=== PATIENT | male | born 1955 | race Caucasian/White ===

== ENCOUNTER → 2020-07-08 09:11 | Outpatient (BNVA) | payer OTHER, MEDICARE, SELFPAY | PROVIDERS: PCP Internal Medicine; Visit Provider Internal Medicine Pulmonary Disease ==

== ENCOUNTER 2020-07-25 08:48 | Outpatient (REF) | payer OTHER, MEDICARE, SELFPAY ==
--- NOTE | 2020-07-25 15:30 | PFT_ITS ---
Forced vital capacity is slightly decreased. FEV1, [id number], and MVV are markedly decreased. Post bronchodilator therapy, there is significant improvement in FEV1, [id number], and MVV. Total lung capacity normal. Residual volume moderately increased. Diffusion capacity is markedly decreased. CONCLUSION: Severe obstructive airway disorder. Partial reversibility after bronchodilator therapy is noted suggesting asthma/COPD overlap syndrome. Clinical correlation is recommended. MD LAURA Aggarwal/MODL / [id number]
== END 2020-07-25 08:49 | disposition home or self-care (01) ==
LOC: HO.RESP 08:48
PROVIDERS: PCP Internal Medicine; Visit Provider Internal Medicine Pulmonary Disease
DX: J44.9 Chronic obstructive pulmonary disease, unspecified (principal)
CPT/HCPCS: 94060; 94727; 94729

== ENCOUNTER → 2020-07-29 08:56 | Outpatient (BNVA) | payer OTHER, MEDICARE, SELFPAY | PROVIDERS: PCP Internal Medicine; Visit Provider Internal Medicine Pulmonary Disease ==

== ENCOUNTER → 2020-09-12 09:27 | Outpatient (BNVA) | payer OTHER, MEDICARE, SELFPAY | PROVIDERS: PCP Internal Medicine; Visit Provider Urology ==

== ENCOUNTER → 2020-11-27 08:57 | Outpatient (BNVA) | payer OTHER, MEDICARE, SELFPAY | PROVIDERS: PCP Internal Medicine; Visit Provider Internal Medicine Pulmonary Disease ==

== ENCOUNTER 2021-02-24 13:32 | Outpatient (REF) | payer OTHER, MEDICARE, SELFPAY ==
--- NOTE | ~2021-02-24 | US_ITS ---
EXAMINATION: US RETROPERITONEAL LIMITED (RENAL ONLY) CLINICAL INFORMATION: Calculus of kidney. COMPARISON: CT abdomen and pelvis with intravenous contrast only dated 05/22/2015. TECHNIQUE: Real-time imaging of the kidneys. FINDINGS: RIGHT KIDNEY: 10.1 x 4.4 x 4.8 cm (SAG x AP x TRV). The kidney is normal in size, contour, and echogenicity. Renal cortical thickness is normal. No calculi or focal parenchymal lesions. No hydronephrosis. LEFT KIDNEY: 10.8 x 4.9 x 4.6 cm (SAG x AP x TRV). The kidney is normal in size, contour, and echogenicity. Renal cortical thickness is normal. No calculi or focal parenchymal lesions. No hydronephrosis. US/US renal BI IMPRESSION: Unremarkable renal ultrasound.
== END 2021-02-24 13:33 | disposition home or self-care (01) ==
LOC: HO.US 13:32
PROVIDERS: Visit Provider Urology
DX: N20.0 Calculus of kidney (principal)
CPT/HCPCS: 76775

== ENCOUNTER 2021-03-09 07:04 | Outpatient (REF) | payer OTHER, MEDICARE, SELFPAY ==
[2021-03-09 09:11] LABS: Prostate Specific Antigen 7.59 ng/mL (<0.05-4.0)
== END 2021-03-09 07:05 | disposition home or self-care (01) ==
LOC: HO.LAB 07:04
PROVIDERS: PCP Internal Medicine; Visit Provider Urology
DX: Z12.5 Encounter for screening for malignant neoplasm of prostate (principal); N40.0 Benign prostatic hyperplasia without lower urinary tract symptoms
CPT/HCPCS: 36415; 84153

== ENCOUNTER → 2021-03-13 09:05 | Outpatient (BNVA) | payer OTHER, MEDICARE, SELFPAY | PROVIDERS: PCP Internal Medicine; Visit Provider Urology | DX: R97.20 Elevated prostate specific antigen [PSA] (principal); N20.0 Calculus of kidney; N40.0 Benign prostatic hyperplasia without lower urinary tract symptoms | CPT/HCPCS: 51798; 99212 ==

== ENCOUNTER → 2021-05-19 08:44 | Outpatient (BNVA) | payer OTHER, MEDICARE, SELFPAY | PROVIDERS: PCP Internal Medicine; Visit Provider Internal Medicine Pulmonary Disease | DX: J44.9 Chronic obstructive pulmonary disease, unspecified (principal); R91.8 Other nonspecific abnormal finding of lung field; Z87.891 Personal history of nicotine dependence | CPT/HCPCS: 99212 ==

== ENCOUNTER 2021-06-17 07:15 | Outpatient (REF) | payer OTHER, SELFPAY ==
--- NOTE | ~2021-06-17 | CT_ITS ---
EXAMINATION: CT CHEST WITHOUT CONTRAST CLINICAL INFORMATION: Other nonspecific abnormal finding of lung field. COMPARISON: Previous chest x-ray and chest CT from 2017 TECHNIQUE: Multidetector volumetric CT imaging of the chest was done. Axial MIP volume rendering provided. Sagittal and coronal reformatted images were obtained. This CT examination was performed using dose optimization techniques as appropriate, variously including the following: *Automated exposure control *Adjustment of mA and/or kV according to patient size (this includes techniques or standardized protocols for targeted exams where dose is matched to indication/reason for exam; i.e. extremities or head) *Use of iterative reconstruction technique DLP: 140 mGy-cm FINDINGS: LUNGS: There is evidence of severe emphysema. There is biapical pleural and parenchymal scarring. The previously identified areas of consolidation in the left upper and right lower lobes have resolved. Right: There is focal scarring seen in the posterior segment of the right upper lobe and superior segment of the right lower lobe adjacent to the major fissure. There is a cyst or cavity seen in the superior segment of the right lower lobe measuring 1.3 cm, axial image 214 series 5. There is adjacent triangular-shaped 0.8 x 1.8 cm possible wall thickening or parenchymal consolidation, for example, axial image 213 series 15. There is an irregular parenchymal density seen in the more central superior segment of the right lower lobe. This is irregularly-shaped and difficult to measure, but measures approximately 1.1 cm, coronal reconstructed image 73 series 7, and measures 0.8 x 1.8 cm in AP and transverse dimension, axial image 230 series 5. There is a second more posterior triangular-shaped, abnormal parenchymal density that measures 5 x 10 mm, axial image 244 series 5. There is adjacent focal bronchiectasis and mild bronchial wall thickening seen in this region. Appearance is questionable for postinfectious or inflammatory scarring. There is a round density seen in the proximal posterior basal segmental right lower lobe bronchus, axial image 290 series 5. Left: There is focal pleural thickening and scarring or subsegmental atelectasis in the superior segment of the left lower lobe adjacent to the left pleural fissure, axial image 196 series 5. There are several clustered central left lower lobe nodules. There is a 3 x 6 mm central left lower lobe nodule, axial image 225 series 5. There is a more inferior 3 x 5 mm central left lower lobe nodule, axial image 256 series 5. Some of these changes may be related to bronchial soft tissue opacification. There is a 3 mm lingular nodule, axial image 284 series 5. MEDIASTINUM: The heart does not appear enlarged. There is mild coronary artery and aortic valve calcification. There is no pericardial effusion. The thoracic aorta is normal in caliber. There are no enlarged hilar or mediastinal lymph nodes. PLEURA: There is no pleural effusion. There is no pneumothorax. AXILLA: No lymphadenopathy. UPPER ABDOMEN: Unremarkable. OSSEOUS STRUCTURES: There is curvature of the thoracic spine to the right and degenerative changes. CT/CT chest wo con IMPRESSION: Severe emphysema. Mild biapical pleural and parenchymal scarring. Resolved areas of pneumonia and right pneumothorax from 2017. Probable postinfectious or inflammatory scarring in the superior segment of the right lower lobe adjacent to the major fissure. Fleischner guidelines were followed.
== END 2021-06-17 07:16 | disposition home or self-care (01) ==
LOC: HO.CT 07:15
PROVIDERS: Visit Provider Surgery
DX: R91.8 Other nonspecific abnormal finding of lung field (principal)
CPT/HCPCS: 71250

== ENCOUNTER → 2021-07-03 10:45 | Outpatient (BNVA) | payer OTHER, SELFPAY | PROVIDERS: PCP Internal Medicine; Visit Provider Surgery | DX: R91.8 Other nonspecific abnormal finding of lung field (principal) | CPT/HCPCS: 99212 ==

== ENCOUNTER 2021-09-09 06:58 | Outpatient (REF) | payer OTHER, SELFPAY ==
[2021-09-09 08:00] LABS: PSA,Total (Free>4and<10) 3.49 ng/mL (0.00-4.00)
== END 2021-09-09 06:59 | disposition home or self-care (01) ==
LOC: HO.LAB 06:58
PROVIDERS: PCP Internal Medicine; Visit Provider Urology
DX: Z12.5 Encounter for screening for malignant neoplasm of prostate (principal); N13.8 Other obstructive and reflux uropathy; N40.1 Benign prostatic hyperplasia with lower urinary tract symptoms; N40.0 Benign prostatic hyperplasia without lower urinary tract symptoms
CPT/HCPCS: 36415; 84153

== ENCOUNTER → 2021-09-15 08:13 | Outpatient (BNVA) | payer OTHER, SELFPAY | PROVIDERS: PCP Internal Medicine; Visit Provider Urology | DX: N40.0 Benign prostatic hyperplasia without lower urinary tract symptoms (principal); R97.20 Elevated prostate specific antigen [PSA] | CPT/HCPCS: 51798 ==

== ENCOUNTER → 2021-12-17 09:00 | Outpatient (BNVA) | payer OTHER, MEDICARE, SELFPAY | PROVIDERS: PCP Internal Medicine; Visit Provider Internal Medicine Pulmonary Disease | DX: J44.9 Chronic obstructive pulmonary disease, unspecified (principal); R91.8 Other nonspecific abnormal finding of lung field | CPT/HCPCS: 99212 ==

== ENCOUNTER 2022-03-09 06:55 | Outpatient (REF) | payer OTHER, MEDICARE, SELFPAY ==
[2022-03-09 08:20] LABS: PSA,Total (Free>4and<10) 4.39 ng/mL (0.00-4.00)
[2022-03-10 11:03] LABS: Free Prostate Spec Ag 0.7 ng/mL; Percent Free Prostate Spec Ag 18 % (calc) (>25); Prostate Specific Ag Total 3.9 ng/mL (< OR = 4.0)
== END 2022-03-09 06:56 | disposition home or self-care (01) ==
LOC: HO.LAB 06:55
PROVIDERS: PCP Internal Medicine; Visit Provider Urology
DX: Z12.5 Encounter for screening for malignant neoplasm of prostate (principal); N13.8 Other obstructive and reflux uropathy; N40.1 Benign prostatic hyperplasia with lower urinary tract symptoms; R97.20 Elevated prostate specific antigen [PSA]
CPT/HCPCS: 36415; 84153; 84154

== ENCOUNTER → 2022-03-16 08:44 | Outpatient (BNVA) | payer OTHER, MEDICARE, SELFPAY | PROVIDERS: Visit Provider Urology | DX: Z13.89 Encounter for screening for other disorder (principal) ==

== ENCOUNTER → 2022-07-09 08:45 | Outpatient (BNVA) | payer OTHER, MEDICARE, SELFPAY | PROVIDERS: Visit Provider Internal Medicine Pulmonary Disease ==

== ENCOUNTER 2022-07-27 07:14 | Outpatient (REF) | payer OTHER, MEDICARE, SELFPAY ==
--- NOTE | ~2022-07-27 | CT_ITS ---
EXAMINATION: CT CHEST WITHOUT CONTRAST CLINICAL INFORMATION: Other nonspecific abnormal finding of lung field COMPARISON: Previous chest CT most recent June 2021 TECHNIQUE: Multidetector volumetric CT imaging of the chest was done. Axial MIP volume rendering provided. Sagittal and coronal reformatted images were obtained. This CT examination was performed using dose optimization techniques as appropriate, variously including the following: *Automated exposure control *Adjustment of mA and/or kV according to patient size (this includes techniques or standardized protocols for targeted exams where dose is matched to indication/reason for exam; i.e. extremities or head) *Use of iterative reconstruction technique DLP: 119 mGy-cm FINDINGS: LUNGS: Centrilobular emphysema and cystic change. Biapical pleural and parenchymal scarring that is stable. Scarring/chronic subsegmental atelectasis in the posterior segment of the right upper lobe and superior segment of the right lower lobe fissure. There is increased triangular shaped consolidation seen in the right lower lobe in the area of questioned thick-walled cyst or cavity formation in the superior segment of the right lower lobe adjacent to the major fissure. Air component or a cystic component is no longer seen and this now measures 1.4 x 1.8 cm axial image 249 series 5 compared to 0.8 x 1.8 cm on previous exam. The 2 more inferior abnormal parenchymal density in the right lower lobe measuring maximum 1 cm axial image 272 series 5 and axial image 288 series 5 are stable. Scarring or chronic subsegmental atelectasis in the superior segment of the left lower lobe adjacent to the fissure axial image 235 series 5 is stable. MEDIASTINUM: Stable small calcification in the left lobe of the thyroid gland. Mild aortic valve calcification. Normal heart size. Upper normal-size thoracic aorta. No pericardial effusion. Small hiatal hernia. Small mediastinal lymph nodes. No enlarged hilar or mediastinal lymph nodes. CORONARY ARTERY CALCIFICATION: None visualized on this study. PLEURA: There is no pleural effusion. No pleural mass or thickening. AXILLA: No lymphadenopathy. UPPER ABDOMEN: Unremarkable. OSSEOUS STRUCTURES: Degenerative changes of the spine and scoliosis. CT/CT chest wo IV con IMPRESSION: Severe centrilobular emphysema and cystic change. Stable biapical pleural and parenchymal scarring. Stable scarring or chronic atelectasis in the bilateral upper lobes adjacent to the major fissures. Interval increase in size in now triangular-shaped consolidation in the superior segment of the right lower lobe adjacent to the major fissure. More inferior abnormal parenchymal densities in the right lower lobe are stable. Fleischner guidelines were followed.
== END 2022-07-27 07:15 | disposition home or self-care (01) ==
LOC: HO.CT 07:14
PROVIDERS: PCP Internal Medicine; Visit Provider Internal Medicine Pulmonary Disease
DX: R91.8 Other nonspecific abnormal finding of lung field (principal)
CPT/HCPCS: 71250

== ENCOUNTER 2022-09-16 06:58 | Outpatient (REF) | payer OTHER, MEDICARE, SELFPAY | END 2022-09-16 06:59 | disposition home or self-care (01) | LOC: HO.LAB 06:58 | PROVIDERS: PCP Internal Medicine; Visit Provider Urology | DX: Z12.5 Encounter for screening for malignant neoplasm of prostate (principal); R97.20 Elevated prostate specific antigen [PSA] | CPT/HCPCS: 36415; 84153 ==

== ENCOUNTER 2022-09-23 08:27 | Outpatient (AMB) | payer OTHER, MEDICARE, SELFPAY ==
--- NOTE | 2022-09-23 08:30 | MHC.OFFVIS ---
Intake Intake Visit Reasons: 6M PSA(set) Intake Note: Patient is present for follow up PSA (PSA 4.10) Urology Medications: finasteride Blood Thinner: none Glass Mechanic Required: No Accompanied by: Self / Same As Patient Allergies No Known Allergies [No Known Allergies*] Allergy (Verified 09/23/22 08:34) Medication List - Last Reconciled 09/23/22 by Ronaldo Newberry MD albuterol sulfate 90 mcg/actuation 2 puffs inhalation Q4-6H PRN 30 days finasteride 5 mg PO DAILY 90 days umeclidinium-vilanterol 62.5-25 mcg/actuation (Anoro Ellipta) 1 ea PO DAILY HPI HPI Comments History of Present Illness Details Ravi is a pleasant male. He is a patient of Dr. Bran. He is seen for the following urologic conditions - elevated PSA - lower urinary tract symptoms - erectile dysfunction PSA remaining low Continue with finasteride every other day Six month follow-up ALEXIA 2+ Lower urinary tract symptoms prior treatment with laser prostatectomy Imaging - 02/24 renal ultrasound normal no evidence of kidney stone - prior hematuria thought secondary to stone Erectile dysfunction more a question of what to look out for Elevated PSA Historic PSA between 5 and 7. Prior prostate biopsy negative PSA 03/26 8.0, 11/25 4.4, 03/28 7.6, 09/25 3.5 F+, 03/29 3.9 18% +F, 09/26 4.1 PFSH Medical History Elevated PSA Enlarged prostate H/O urinary retention History of hepatitis B History of pneumothorax Insomnia Personal history of nicotine dependence Surgical History History of bronchoscopy History of colonoscopy History of endoscopy History of prostatectomy Social History Patient Tobacco Use Status: Former Tobacco user Quit Date: 1999 Years Smoked: 40+PYH, quit 1999 Review of Systems Const Denies chills and Denies fever(s) Card Reports no additional complaints and Denies syncope Resp Denies cough GI Denies abdominal pain and Denies heartburn Reports as per HPI and Denies change in libido Neuro Denies syncope Psych Denies change in libido Endo Denies change in libido Physical Exam Const General: cooperative, healthy appearing, comfortable and no acute distress Orientation/consciousness: patient oriented x3 HEENT Face and sinus: Yes normal facial exam Mouth: moist mucous membranes Neck Neck: Yes normal visual inspection, Yes full ROM and Yes trachea midline Chest Chest palpation & inspection: normal inspection of the chest Resp Effort & Inspection: normal respiratory effort, able to speak in complete sentences and no respiratory distress GI Inspection: Yes normal to inspection Rectal Exam - Male: Yes normal sphincter tone and Yes prostate normal Male General Exam: Yes normal external exam Penis: normal penis and circumcised Meatus: meatus normal Scrotum: scrotum normal Testes: Testes normal Back/Spine/Pelvis Cervical Spine: normal cervical lordosis Thoracic/Lumbar Spine: thoracic and lumbar spine normal to inspection Skin General skin exam: no rashes or lesions noted Neuro General: patient oriented x3, gait normal, tone normal and moves all extremities Extrem General: Yes normal to inspection and Yes capillary refill normal Assessment & Plan Assessment & Plan (1) Nephrolithiasis: Code(s): N20.0 - Calculus of kidney (2) Elevated PSA: Code(s): R97.20 - Elevated prostate specific antigen [PSA] Plan Six month follow-up Orders: Orders Prostate Specific Antigen 09/16/22 R97.20 - Elevated prostate specific antigen [PSA] Prostate Specific Antigen 6 Months R97.20 - Elevated prostate specific antigen [PSA] Patient Instructions: Imaging studies, laboratory and physical exam results were discussed and reviewed in detail. No major barriers to patient understanding were identified. An opportunity to ask questions regarding the treatment plan was provided. All questions were answered. The patient expressed understanding and agreement with the above treatment plan. The patient is aware they should contact our office by phone for worsening of their current condition or the appearance of new urologic symptoms. Compliance is encouraged with any medications and followup testing that is ordered. It is a privilege to participate in the urologic care of your patient. If you have any questions or concerns regarding treatment for the above conditions, or other urologic issues, please do not hesitate to contact me. The office telephone contact is [phone]. This note is constructed using voice recognition software. While every effort has been made to ensure accuracy tack puller errors may have been included. Yours sincerely, Dr Ronaldo Newberry MD, [facility] - Urology Providers of Expert, Compassionate Care for the Genitourinary System Coding Level of Care Code Est Pt Level 3 (12034) Diagnoses Nephrolithiasis N20.0 Elevated PSA R97.20
== END 2022-09-23 09:03 | disposition home or self-care (01) ==
PROVIDERS: Visit Provider Urology
DX: N20.0 Calculus of kidney (principal); R97.20 Elevated prostate specific antigen [PSA]
CPT/HCPCS: 99213

== ENCOUNTER → 2022-09-23 08:27 | Outpatient (BNVA) | payer OTHER, MEDICARE, SELFPAY | PROVIDERS: Visit Provider Urology ==

== ENCOUNTER 2022-11-10 08:12 | Outpatient (REF) | payer OTHER, MEDICARE, SELFPAY ==
--- NOTE | 2022-11-10 09:30 | PFT_ITS ---
Forced vital capacity 88%, FEV1 40%, FEV1/FVC ratio 34. [id number] 16% and MVV is 38%. Post bronchodilator therapy, there is no change. Total lung capacity 87% and residual volume is 83%. Diffusion capacity is 36%. CONCLUSION: The patient has very severe obstructive airway disorder. No improvement after bronchodilator therapy. The test results are compared with pulmonary function test on 07/25/2020. Actually the FVC and FEV1 as well as FEF values are somewhat improved. Diffusion capacity is also slightly improved. Clinical correlation recommended. MD LAURA Aggarwal/MODL / [id number]
== END 2022-11-10 08:13 | disposition home or self-care (01) ==
LOC: HO.RESP 08:12
PROVIDERS: PCP Internal Medicine; Visit Provider Internal Medicine Pulmonary Disease
DX: J44.9 Chronic obstructive pulmonary disease, unspecified (principal)
CPT/HCPCS: 94060; 94727; 94729

== ENCOUNTER → 2022-11-10 09:30 | Outpatient (BNV) | payer OTHER, MEDICARE, SELFPAY | PROVIDERS: PCP Internal Medicine; Visit Provider Internal Medicine | DX: J44.9 Chronic obstructive pulmonary disease, unspecified (principal) | CPT/HCPCS: 94060; 94727; 94729 ==

== ENCOUNTER 2023-03-16 07:10 | Outpatient (REF) | payer OTHER, MEDICARE, SELFPAY ==
[2023-03-16 08:58] LABS: Prostate Specific Antigen 9.65 ng/mL (<0.05-4.0)
== END 2023-03-16 07:11 | disposition home or self-care (01) ==
LOC: HO.LAB 07:10
PROVIDERS: PCP Internal Medicine; Visit Provider Urology
DX: Z12.5 Encounter for screening for malignant neoplasm of prostate (principal); R97.20 Elevated prostate specific antigen [PSA]
CPT/HCPCS: 36415; 84153

== ENCOUNTER 2023-03-22 08:47 | Outpatient (AMB) | payer OTHER, MEDICARE, SELFPAY ==
--- NOTE | 2023-03-22 08:56 | A.OFFVIS_ITS ---
Intake Intake Visit Reasons: 6m/PSA(set) Intake Note: Patient is Present for Telephone Follow Up PSA Urology Med: Finasteride, Antibiotic Allergy: None Blood Thinner: None Allergies No Known Allergies [No Known Allergies*] Allergy (Verified 03/22/23 08:57) Medication List - Last Reconciled 03/22/23 by Ronaldo Newberry MD albuterol sulfate 90 mcg/actuation 2 puffs inhalation Q4-6H PRN 30 days finasteride 5 mg PO DAILY 90 days umeclidinium-vilanterol 62.5-25 mcg/actuation (Anoro Ellipta) 1 ea PO DAILY HPI HPI Comments History of Present Illness Details Ravi is a pleasant male. He is a patient of Dr. Bran. He is seen for the following urologic conditions - elevated PSA - lower urinary tract symptoms - erectile dysfunction Telemedicine Evaluation 15 min Consultation [employer] Marybeth Video attempted PSA jump to 9.6 18% Tells me he was shoveling snow and snow blowing the day before doing the lab test Repeat lab in 2 months Would get MRI if persistent elevation ALEXIA 2+ Lower urinary tract symptoms prior treatment with laser prostatectomy Imaging - 02/24 renal ultrasound normal no evide nce of kidney stone - prior hematuria thought secondary to stone Erectile dysfunction More a question of what to look out for Elevated PSA Historic PSA between 5 and 7. Prior prostate biopsy negative PSA 03/26 8.0, 11/25 4.4, 03/28 7.6, 09/25 3.5 F+, 03/29 3.9 18% +F, 09/26 4.1, 03/30 9.7 18% PFSH Medical History Personal history of nicotine dependence History of pneumothorax History of hepatitis B Insomnia H/O urinary retention Enlarged prostate Elevated PSA Surgical History History of endoscopy History of colonoscopy History of bronchoscopy History of prostatectomy Social History Patient Tobacco Use Status: Former Tobacco user Quit Date: 1999 Years Smoked: 40+PYH, quit 1999 Review of Systems Const All systems reviewed & are unremarkable except as noted in HPI and below Reports no additional complaints Resp Reports no additional complaints GI Reports no additional complaints Reports as per HPI [facility] [place] Reports no additional complaints Physical Exam Telemedicine evaluation Appropriate responses Regular breathing rate and rhythm HEENT Head: Yes normal to inspection Ears: hearing grossly normal bilaterally Eyes General: appearance normal, both eyes and all related structures Neck Neck: Yes normal visual inspection Chest Chest palpation & inspection: normal inspection of the chest Resp Effort & Inspection: normal respiratory effort and able to speak in complete sentences Assessment & Plan Assessment & Plan (1) Elevated PSA: Code(s): R97.20 - Elevated prostate specific antigen [PSA] Plan Repeat lab work 2 months Orders: Orders PSA,Total (Free>4and<10) 2 Months R97.20 - Elevated prostate specific antigen [PSA] Medications: Refilled finasteride 5 mg PO DAILY 90 days 90 tabs 1RF N13.8 - Other obstructive and reflux uropathy, N40.1 - Benign prostatic hyperplasia with lower urinary tract symptoms, R33.9 - Retention of urine, unspecified Patient Instructions: Imaging studies, laboratory and physical exam results were discussed and reviewed in detail. No major barriers to patient understanding were identified. An opportunity to ask questions regarding the treatment plan was provided. All questions were answered. The patient expressed understanding and agreement with the above treatment plan. The patient is aware they should contact our office by phone for worsening of their current condition or the appearance of new urologic symptoms. Compliance is encouraged with any medications and followup testing that is ordered. It is a privilege to participate in the urologic care of your patient. If you have any questions or concerns regarding treatment for the above conditions, or other urologic issues, please do not hesitate to contact me. The office telephone contact is [phone]. This note is constructed using voice recognition software. While every effort has been made to ensure accuracy senior vice president and chief information officer errors may have been included. Yours sincerely, Dr Ronaldo Newberry MD, [facility] - Urology Providers of Expert, Compassionate Care for the Genitourinary System Telehealth Telehealth Location of provider rendering services: practice address Location of patient: address on file Patient Identification confirmed using: Name, : Yes Telehealth method: video Patient verbally consented to treatment: Yes Patient verbally consented to billing insurance company: Yes Patient informed of any privacy concerns related to visit: Yes Coding Level of Care Code Tele Est Pt Level 4 (09498) Diagnoses Elevated PSA R97.20
== END 2023-03-22 09:26 | disposition home or self-care (01) ==
LOC: HO.HUSH 08:48
PROVIDERS: PCP Internal Medicine; Visit Provider Urology
DX: R97.20 Elevated prostate specific antigen [PSA] (principal)
CPT/HCPCS: 99213

== ENCOUNTER → 2023-03-22 08:47 | Outpatient (BNVA) | payer OTHER, MEDICARE, SELFPAY | PROVIDERS: PCP Internal Medicine; Visit Provider Urology ==

== ENCOUNTER 2023-05-23 07:15 | Outpatient (REF) | payer OTHER, MEDICARE, SELFPAY ==
[2023-05-23 08:25] LABS: PSA,Total (Free>4and<10) 3.72 ng/mL (0.00-4.00)
== END 2023-05-23 07:16 | disposition home or self-care (01) ==
LOC: HO.LAB 07:15
PROVIDERS: PCP Internal Medicine; Visit Provider Urology
DX: R97.20 Elevated prostate specific antigen [PSA] (principal); Z12.5 Encounter for screening for malignant neoplasm of prostate
CPT/HCPCS: 36415; 84153

== ENCOUNTER 2023-05-26 08:57 | Outpatient (AMB) | payer MEDICARE, OTHER, SELFPAY ==
--- NOTE | 2023-05-26 08:58 | A.OFFVIS_ITS ---
Intake Intake Visit Reasons: 2M PSA(set)Confirmed Intake Note: Patient presents today for a telehealth follow-up on PSA Meds- Finasteride Allergies to Antibiotic- No Known Allergies Blood Thinner- None [employer] St[employer]emason Required: No Allergies No Known Allergies [No Known Allergies*] Allergy (Verified 05/26/23 08:59) Medication List - Last Reconciled 05/26/23 by Ronaldo Newberry MD albuterol sulfate 90 mcg/actuation 2 puffs inhalation Q4-6H PRN 30 days finasteride 5 mg PO DAILY 90 days umeclidinium-vilanterol 62.5-25 mcg/actuation (Anoro Ellipta) 1 ea PO DAILY HPI HPI Comments History of Present Illness Details Ravi is a pleasant male. He is a patient of Dr. Bran. He is seen for the following urologic conditions - elevated PSA - lower urinary tract symptoms - erectile dysfunction Telemedicine Evaluation 15 min Consultation [employer] Video attempted Prior PSA jump to 9.6 18% Tells me he was shoveling snow and snow blowing the day before doing the lab test Repeat lab 05/28 3.7 ALEXIA 2+ Follow-up 6 months Lower urinary tract symptoms prior treatment with laser prostatectomy Imaging - 02/24 renal ultrasound normal no evide nce of kidney stone - prior hematuria thought secondary to stone Erectile dysfunction More a question of what to look out for Elevated PSA Historic PSA between 5 and 7. Prior prostate biopsy negative PSA 03/26 8.0, 11/25 4.4, 03/28 7.6, 09/25 3.5 F+, 03/29 3.9 18% +F, 09/26 4.1, 03/30 9.7 18% PFSH Medical History Personal history of nicotine dependence History of pneumothorax History of hepatitis B Insomnia H/O urinary retention Enlarged prostate Elevated PSA Surgical History History of endoscopy History of colonoscopy History of bronchoscopy History of prostatectomy Social History Patient Tobacco Use Status: Former Tobacco user Quit Date: 1999 Years Smoked: 40+PYH, quit 1999 Review of Systems Const Denies chills and Denies fever(s) Card Reports no additional complaints and Denies syncope Resp Denies cough GI Denies abdominal pain and Denies heartburn Reports as per HPI and Denies change in libido Neuro Denies syncope Psych Denies change in libido Endo Denies change in libido Physical Exam Const General: cooperative, healthy appearing, comfortable and no acute distress Orientation/consciousness: patient oriented x3 HEENT Face and sinus: Yes normal facial exam Mouth: moist mucous membranes Neck Neck: Yes normal visual inspection, Yes full ROM and Yes trachea midline Chest Chest palpation & inspection: normal inspection of the chest Resp Effort & Inspection: normal respiratory effort, able to speak in complete sentences and no respiratory distress GI Inspection: Yes normal to inspection Back/Spine/Pelvis Cervical Spine: normal cervical lordosis Thoracic/Lumbar Spine: thoracic and lumbar spine normal to inspection Skin General skin exam: no rashes or lesions noted Neuro General: patient oriented x3, gait normal, tone normal and moves all extremities Extrem General: Yes normal to inspection and Yes capillary refill normal Assessment & Plan Assessment & Plan (1) Enlarged prostate: Code(s): N40.0 - Benign prostatic hyperplasia without lower urinary tract symptoms (2) Elevated PSA: Code(s): R97.20 - Elevated prostate specific antigen [PSA] Plan Six-month follow-up PSA Orders: Orders PSA,Total (Free>4and<10) 6 Months N40.0 - Benign prostatic hyperplasia without lower urinary tract symptoms, R97.20 - Elevated prostate specific antigen [PSA] Medications: Refilled finasteride 5 mg PO DAILY 90 tabs 1RF 90 days N13.8 - Other obstructive and reflux uropathy, N40.1 - Benign prostatic hyperplasia with lower urinary tract symptoms, R33.9 - Retention of urine, unspecified Patient Instructions: Imaging studies, laboratory and physical exam results were discussed and reviewed in detail. No major barriers to patient understanding were identified. An opportunity to ask questions regarding the treatment plan was provided. All questions were answered. The patient expressed understanding and agreement with the above treatment plan. The patient is aware they should contact our office by phone for worsening of their current condition or the appearance of new urologic symptoms. Compliance is encouraged with any medications and followup testing that is ordered. It is a privilege to participate in the urologic care of your patient. If you have any questions or concerns regarding treatment for the above conditions, or other urologic issues, please do not hesitate to contact me. The office telephone contact is [phone]. This note is constructed using voice recognition software. While every effort has been made to ensure accuracy probation manager errors may have been included. Yours sincerely, Dr Ronaldo Newberry MD, [facility] - Urology Providers of Expert, Compassionate Care for the Genitourinary System Telehealth Telehealth Location of provider rendering services: practice address Location of patient: address on file Patient Identification confirmed using: Name, : Yes Telehealth method: video Patient verbally consented to treatment: Yes Patient verbally consented to billing insurance company: Yes Patient informed of any privacy concerns related to visit: Yes Coding Level of Care Code Tele Est Pt Level 3 (94062) Diagnoses Enlarged prostate N40.0 Elevated PSA R97.20
== END 2023-05-26 09:32 | disposition home or self-care (01) ==
LOC: HO.HUSH 08:57
PROVIDERS: PCP Internal Medicine; Visit Provider Urology
DX: N40.0 Benign prostatic hyperplasia without lower urinary tract symptoms (principal); R97.20 Elevated prostate specific antigen [PSA]
CPT/HCPCS: 99213

== ENCOUNTER → 2023-05-26 08:57 | Outpatient (BNVA) | payer MEDICARE, OTHER, SELFPAY | PROVIDERS: PCP Internal Medicine; Visit Provider Urology ==

== ENCOUNTER 2023-07-06 08:53 | Outpatient (AMB) | payer OTHER, MEDICARE, SELFPAY ==
[2023-07-06 08:59] VITALS: BP 112/62; PULSE 53; O2SAT 95; BMI 19.7
--- NOTE | 2023-07-06 08:59 | MHC.OFFVIS ---
Vital Signs 07/06/23 08:59 Height 6 ft 1 in Weight 149 lb BMI 19.7 BP 112/62 Blood Pressure Location Lt brachial Position Sitting Pulse 53 Pulse Source Doppler Pulse Oximetry (%) 95 Oxygen Delivery Method Room Air Intake Visit Reasons: COPD Allergies No Known Allergies [No Known Allergies*] Allergy (Verified 07/06/23 09:02) HPI HPI COPD: Details: 67-year-old gentleman, former 40+ pack-year smoker, quit 1999 followed for underlying severe COPD.? Patient has been using Anoro and albuterol MDI with excellent control of his underlying dyspnea symptoms.? He denies recent COPD exacerbations.? His follow-up CT chest showed slowly increasing pulmonary nodule. [facility] Medical History Personal history of nicotine dependence History of pneumothorax History of hepatitis B Insomnia H/O urinary retention Enlarged prostate Elevated PSA Surgical History History of endoscopy History of colonoscopy History of bronchoscopy History of prostatectomy Social History Patient Tobacco Use Status: Former Tobacco user Quit Date: 1999 Years Smoked: 40+PYH, quit 1999 Review of Systems Const Denies daytime sleepiness, Denies excessive sweating, Denies fatigue, Denies fever(s), Denies lethargy, Denies malaise, Denies night sweats, Denies snoring and Denies weight loss Eyes Denies blurry vision and Denies itchy eyes ENT Denies nasal congestion, Denies post nasal drip, Denies sinus pain, Denies sinus pressure and Denies other ( Thrush) Card Denies chest pain, Denies pedal edema, Denies dyspnea, Denies orthopnea and Denies paroxysmal nocturnal dyspnea Resp Denies cough, Denies hemoptysis, Denies excessive phlegm production, Denies dyspnea, Denies snoring and Denies wheezing GI Denies abdominal pain and Denies heartburn Musc Denies myalgias, Denies arthralgias and Denies joint swelling Skin/Breast Denies rash Neuro Denies memory loss and Denies seizure-like activity Psych Denies abnormal sleep pattern, Denies anxiety and Denies memory loss Endo Denies excessive sweating, Denies fatigue and Denies heat intolerance Theo/Lymph Denies easy bruising Aller/Immun Denies itchy eyes, Denies seasonal rhinorrhea and Denies wheezing Physical Exam Vital Signs: Last Vital Signs Pulse 53 07/06/23 08:59 BP 112/62 07/06/23 08:59 Pulse Ox 95 07/06/23 08:59 Oxygen Delivery Method Room Air 07/06/23 08:59 BMI result Body Mass Index 19.7 Const General: no acute distress and alert Nutritional Appearance: not obese Orientation/consciousness: Other orientation findings ( oriented) HEENT Head: Yes atraumatic Eyes General: appearance normal, both eyes and all related structures Sclerae: sclerae normal EOM: EOMs intact bilaterally Neck Neck: Yes supple Lymphatic: no lymphadenopathy noted Resp Effort & Inspection: normal respiratory effort and no use of accessory muscles Auscultation: clear to auscultation bilaterally Cardio Rate: regular rate Rhythm: regular rhythm Heart sounds: no gallops, no murmurs and no rubs Skin General skin exam: other ( warm) Extrem General: No clubbing, No cyanosis and No edema Assessment & Plan Assessment & Plan (1) COPD (chronic obstructive pulmonary disease): Code(s): J44.9 - Chronic obstructive pulmonary disease, unspecified Category: Medical Plan: Well controlled on current regimen of Anoro and albuterol MDI. Continue current regimen. (2) Pulmonary nodules: Code(s): R91.8 - Other nonspecific abnormal finding of lung field Category: Medical Plan: Results of CT chest from 07/27 reviewed, slowly enlarging pulmonary nodule, will repeat CT chest for further evaluation. Orders: Orders CT chest wo IV con Today R91.8 - Other nonspecific abnormal finding of lung field Coding Level of Care Code Est Pt Level 4 (74493) Diagnoses COPD (chronic obstructive pulmonary disease) J44.9 Pulmonary nodules R91.8
== END 2023-07-06 09:12 | disposition home or self-care (01) ==
PROVIDERS: PCP Internal Medicine; Visit Provider Internal Medicine Pulmonary Disease
DX: J44.9 Chronic obstructive pulmonary disease, unspecified (principal); R91.8 Other nonspecific abnormal finding of lung field
CPT/HCPCS: 99214

== ENCOUNTER → 2023-07-06 08:53 | Outpatient (BNVA) | payer OTHER, MEDICARE, SELFPAY | PROVIDERS: PCP Internal Medicine; Visit Provider Internal Medicine Pulmonary Disease | DX: J44.9 Chronic obstructive pulmonary disease, unspecified (principal); R91.8 Other nonspecific abnormal finding of lung field | CPT/HCPCS: 99212 ==

== ENCOUNTER 2023-08-15 07:11 | Outpatient (REF) | payer OTHER, MEDICARE, SELFPAY ==
--- NOTE | ~2023-08-15 | CT_ITS ---
EXAMINATION: CT CHEST WITHOUT CONTRAST CLINICAL INFORMATION: Follow-up emphysema with consolidation seen on the previous study COMPARISON: 07/27/2022 TECHNIQUE: Multidetector volumetric CT imaging of the chest was done. Axial MIP volume rendering provided. Sagittal and coronal reformatted images were obtained. This CT examination was performed using dose optimization techniques as appropriate, variously including the following: *Automated exposure control *Adjustment of mA and/or kV according to patient size (this includes techniques or standardized protocols for targeted exams where dose is matched to indication/reason for exam; i.e. extremities or head) *Use of iterative reconstruction technique DLP: 114 mGy-cm FINDINGS: OSTOMY RN: Unremarkable LUNGS: There are changes of centrilobular emphysema with multiple cystic spaces and by apical scarring, more prominent on the right. There is pleural thickening: There right upper lobe and apex of right lower lobe inseparable from major fissure. Right lower lobe is overinflated and right upper lobe is diminished in volume. There are no lung nodules. Central airways are patent MEDIASTINUM: There is calcification in the left thyroid lobe. There is no mediastinal or hilar lymphadenopathy. Aorta is not dilated. There is no pulmonary hypertension. CORONARY ARTERY CALCIFICATION: Mild PLEURA: There is no pleural effusion. No pleural mass or thickening. AXILLA: No lymphadenopathy. UPPER ABDOMEN: Unremarkable. OSSEOUS STRUCTURES: There is kyphotic deformity of thoracic spine and mild dextroscoliosis. CT/CT chest wo IV con IMPRESSION: Stable changes are severe emphysema with apical scarring and pleural thickening on the right. No lung nodules. Fleischner guidelines were followed.
== END 2023-08-15 07:12 | disposition home or self-care (01) ==
LOC: HO.CT 07:11
PROVIDERS: PCP Internal Medicine; Visit Provider Internal Medicine Pulmonary Disease
DX: R91.8 Other nonspecific abnormal finding of lung field (principal)
CPT/HCPCS: 71250

== ENCOUNTER 2024-01-11 08:44 | Outpatient (AMB) | payer MEDICARE, OTHER, SELFPAY ==
--- NOTE | 2024-01-11 08:48 | MHC.OFFVIS ---
Vital Signs 01/11/24 08:49 Height 6 ft 1 in Weight 152 lb BMI 20.1 BP 138/72 Blood Pressure Location Rt brachial Position Sitting Pulse 79 Pulse Source Doppler Pulse Oximetry (%) 96 Oxygen Delivery Method Room Air Intake Visit Reasons: COPD Allergies No Known Allergies [No Known Allergies*] Allergy (Verified 07/06/23 09:02) HPI HPI COPD: Details: 68-year-old gentleman, former 40+ pack-year smoker, quit 1999 followed for underlying severe COPD and pulmonary nodules.? Patient has been using Anoro and albuterol MDI with excellent control of his underlying dyspnea symptoms.? He denies recent COPD exacerbations.? His follow-up CT chest showed no worrisome nodules on repeat scan in August of 2023. [facility] Medical History Personal history of nicotine dependence History of pneumothorax History of hepatitis B Insomnia H/O urinary retention Enlarged prostate Elevated PSA Surgical History History of endoscopy History of colonoscopy History of bronchoscopy History of prostatectomy Social History Patient Tobacco Use Status: Former Tobacco user Years Smoked: 40+PYH, quit 1999 Review of Systems Const Denies daytime sleepiness, Denies excessive sweating, Denies fatigue, Denies fever(s), Denies lethargy, Denies malaise, Denies night sweats, Denies snoring and Denies weight loss Eyes Denies blurry vision and Denies itchy eyes ENT Denies nasal congestion, Denies post nasal drip, Denies sinus pain, Denies sinus pressure and Denies other ( Thrush) Card Denies chest pain, Denies pedal edema, Denies dyspnea, Denies orthopnea and Denies paroxysmal nocturnal dyspnea Resp Denies cough, Denies hemoptysis, Denies excessive phlegm production, Denies dyspnea, Denies snoring and Denies wheezing GI Denies abdominal pain and Denies heartburn Musc Denies myalgias, Denies arthralgias and Denies joint swelling Skin/Breast Denies rash Neuro Denies memory loss and Denies seizure-like activity Psych Denies abnormal sleep pattern, Denies anxiety and Denies memory loss Endo Denies excessive sweating, Denies fatigue and Denies heat intolerance Theo/Lymph Denies easy bruising Aller/Immun Denies itchy eyes, Denies seasonal rhinorrhea and Denies wheezing Physical Exam Vital Signs: Last Vital Signs Pulse 79 01/11/24 08:49 BP 138/72 01/11/24 08:49 Pulse Ox 96 01/11/24 08:49 Oxygen Delivery Method Room Air 01/11/24 08:49 BMI result Body Mass Index 20.1 Const General: no acute distress and alert Nutritional Appearance: not obese Orientation/consciousness: Other orientation findings ( oriented) HEENT Head: Yes atraumatic Eyes General: appearance normal, both eyes and all related structures Sclerae: sclerae normal EOM: EOMs intact bilaterally Neck Neck: Yes supple Lymphatic: no lymphadenopathy noted Resp Effort & Inspection: normal respiratory effort and no use of accessory muscles Auscultation: clear to auscultation bilaterally Cardio Rate: regular rate Rhythm: regular rhythm Heart sounds: no gallops, no murmurs and no rubs Skin General skin exam: other ( warm) Extrem General: No clubbing, No cyanosis and No edema Assessment & Plan Assessment & Plan (1) COPD (chronic obstructive pulmonary disease): Code(s): J44.9 - Chronic obstructive pulmonary disease, unspecified Category: Medical Plan: Well controlled on current regimen of Anoro and albuterol MDI. Continue current regimen. (2) Pulmonary nodules: Code(s): R91.8 - Other nonspecific abnormal finding of lung field Category: Medical Plan: Results of CT scan from August of 2023 reviewed, no worrisome nodules. Will repeat scan in August of 2024. Orders: Orders CT chest wo IV con 08/10/24 R91.8 - Other nonspecific abnormal finding of lung field Coding Level of Care Code Est Pt Level 4 (48811) Diagnoses COPD (chronic obstructive pulmonary disease) J44.9 Pulmonary nodules R91.8
[2024-01-11 08:49] VITALS: BP 138/72; PULSE 79; O2SAT 96; BMI 20.1
== END 2024-01-11 08:59 | disposition home or self-care (01) ==
LOC: HO.HPS 08:44
PROVIDERS: PCP Internal Medicine; Visit Provider Internal Medicine Pulmonary Disease
DX: J44.9 Chronic obstructive pulmonary disease, unspecified (principal); R91.8 Other nonspecific abnormal finding of lung field
CPT/HCPCS: 99214

== ENCOUNTER → 2024-01-11 08:44 | Outpatient (BNVA) | payer MEDICARE, OTHER, SELFPAY | PROVIDERS: PCP Internal Medicine; Visit Provider Internal Medicine Pulmonary Disease | DX: J44.9 Chronic obstructive pulmonary disease, unspecified (principal); R91.8 Other nonspecific abnormal finding of lung field; Z87.891 Personal history of nicotine dependence | CPT/HCPCS: 99212 ==

== ENCOUNTER 2024-02-03 06:49 | Outpatient (REF) | payer OTHER, MEDICARE, SELFPAY ==
[2024-02-03 08:28] LABS: PSA,Total (Free>4and<10) 3.95 ng/mL (0.00-4.00)
== END 2024-02-03 06:50 | disposition home or self-care (01) ==
LOC: HO.LAB 06:49
PROVIDERS: PCP Internal Medicine; Visit Provider Urology
DX: R97.20 Elevated prostate specific antigen [PSA] (principal); N40.0 Benign prostatic hyperplasia without lower urinary tract symptoms; Z12.5 Encounter for screening for malignant neoplasm of prostate
CPT/HCPCS: 36415; 84153

== ENCOUNTER 2024-02-08 08:33 | Outpatient (AMB) | payer MEDICARE, OTHER, SELFPAY ==
--- NOTE | 2024-02-08 08:38 | MHC.OFFVIS ---
Intake Visit Reasons: 6M PSA(psa?) Intake Note: Patient is present for 6M PSA Urology Medication:FINASTERIDE Antibiotic Allergy:NONE Blood Thinner:NONE TODAY'S PVR 12ML'S Graduate Engineer Required: No Allergies No Known Allergies [No Known Allergies*] Allergy (Verified 02/08/24 08:38) HPI Comments Details: Ravi is a pleasant male. He is a patient of Dr. Bran. He is seen for the following urologic conditions - elevated PSA - lower urinary tract symptoms - erectile dysfunction Repeat PSA 3.9 Continues with finasteride every other day Prior PSA jump to 9.6 18% Tells me he was shoveling snow and snow blowing the day before doing the lab test Repeat lab 05/28 3.7 ALEXIA 2+ Lower urinary tract symptoms Prior treatment with laser prostatectomy Imaging - 02/24 renal ultrasound normal no evidence of kidney stone - prior hematuria thought secondary to stone Erectile dysfunction More a question of what to look out for Elevated PSA Historic PSA between 5 and 7. Prior prostate biopsy negative PSA 03/26 8.0, 11/25 4.4, 03/28 7.6, 09/25 3.5 F+, 03/29 3.9 18% +F, 09/26 4.1, 03/30 9.7 18%, 01/28 3.9 PFSH Medical History Personal history of nicotine dependence History of pneumothorax History of hepatitis B Insomnia H/O urinary retention Enlarged prostate Elevated PSA Surgical History History of endoscopy History of colonoscopy History of bronchoscopy History of prostatectomy Social History Patient Tobacco Use Status: Former Tobacco user Years Smoked: 40+PYH, quit 2000 Review of Systems Const Denies chills and Denies fever(s) Card Reports no additional complaints and Denies syncope Resp Denies cough GI Denies abdominal pain and Denies heartburn Reports as per HPI and Denies change in libido Neuro Denies syncope Psych Denies change in libido Endo Denies change in libido Physical Exam Const General: cooperative, healthy appearing, comfortable and no acute distress Orientation/consciousness: patient oriented x3 HEENT Face and sinus: Yes normal facial exam Mouth: moist mucous membranes Neck Neck: Yes normal visual inspection, Yes full ROM and Yes trachea midline Chest Chest palpation & inspection: normal inspection of the chest Resp Effort & Inspection: normal respiratory effort, able to speak in complete sentences and no respiratory distress GI Inspection: Yes normal to inspection Back/Spine/Pelvis Cervical Spine: normal cervical lordosis Thoracic/Lumbar Spine: thoracic and lumbar spine normal to inspection Skin General skin exam: no rashes or lesions noted Neuro General: patient oriented x3, gait normal, tone normal and moves all extremities Extrem General: Yes normal to inspection and Yes capillary refill normal Office Procedures Post Void Residual Post Residual Void Post Void Residual (PVR): 12 36614-[id number] Void Residual by ultrasound Results AMB Urinalysis, Automated UA Leukoctes 0 Varsha/uL Last Edit by DIONTE Corral on 02/08/24 08:51 UA Nitrite Negative Last Edit by DIONTE Corral on 02/08/24 08:51 UA Urobilinogen 0.2 mg/dL Last Edit by DIONTE Corral on 02/08/24 08:51 UA Protein 0 mg/dL Last Edit by DIONTE Corral on 02/08/24 08:51 UA pH 6.0 Last Edit by DIONTE Corral on 02/08/24 08:51 UA Blood 0 Arvin/uL Last Edit by DIONTE Corral on 02/08/24 08:51 UA Specific Thornton 1.030 Last Edit by DIONTE Corral on 02/08/24 08:51 UA Ketone Negative Last Edit by DIONTE Corral on 02/08/24 08:51 UA Bilirubin 0 mg/dL Last Edit by DIONTE Corral on 02/08/24 08:51 UA Glucose 0 mg/dL Last Edit by DIONTE Corral on 02/08/24 08:51 Results Reviewed Results Reviewed: Laboratory Last Values Urine pH (Auto) 6.0 02/08/24 08:50 Specific Thornton (Auto) 1.030 02/08/24 08:50 Urine Protein (Auto) 0 mg/dL 02/08/24 08:50 Glucose (UA)(Auto) 0 mg/dL 02/08/24 08:50 Urine Ketones (Auto) Negative 02/08/24 08:50 Urine Blood (Auto) 0 Arvin/uL 02/08/24 08:50 Urine Nitrite (Auto) Negative 02/08/24 08:50 Urine Bilirubin (Auto) 0 mg/dL 02/08/24 08:50 Urine Urobilinogen (Auto) 0.2 mg/dL 02/08/24 08:50 Leukocyte Esterase (Auto) 0 Varsha/uL 02/08/24 08:50 Assessment & Plan Assessment & Plan (1) Elevated PSA: Code(s): R97.20 - Elevated prostate specific antigen [PSA] Category: Medical (2) Enlarged prostate: Code(s): N40.0 - Benign prostatic hyperplasia without lower urinary tract symptoms Category: Medical (3) Nephrolithiasis: Code(s): N20.0 - Calculus of kidney Category: Medical Plan Twelve month follow-up PSA Orders: Orders Prostate Specific Antigen 02/03/24 R97.20 - Elevated prostate specific antigen [PSA] AMB Urinalysis Automated Today Z13.9 - Encounter for screening, unspecified Prostate Specific Antigen 364 Days R97.20 - Elevated prostate specific antigen [PSA] Patient Instructions: Imaging studies, laboratory and physical exam results were discussed and reviewed in detail. No major barriers to patient understanding were identified. An opportunity to ask questions regarding the treatment plan was provided. All questions were answered. The patient expressed understanding and agreement with the above treatment plan. The patient is aware they should contact our office by phone for worsening of their current condition or the appearance of new urologic symptoms. Compliance is encouraged with any medications and followup testing that is ordered. It is a privilege to participate in the urologic care of your patient. If you have any questions or concerns regarding treatment for the above conditions, or other urologic issues, please do not hesitate to contact me. The office telephone contact is [phone]. This note is constructed using voice recognition software. While every effort has been made to ensure accuracy technical documentation specialist errors may have been included. Yours sincerely, Dr Ronaldo Newberry MD, [facility] - Urology Providers of Expert, Compassionate Care for the Genitourinary System Coding Level of Care Code Est Pt Level 4 (50835) Diagnoses Elevated PSA R97.20 Enlarged prostate N40.0 Nephrolithiasis N20.0 CPT Codes Post Residual Void - PVR CPT Code: 10950-Ktso Void Residual by ultrasound ([id number])
== END 2024-02-08 09:03 | disposition home or self-care (01) ==
PROVIDERS: PCP Internal Medicine; Visit Provider Urology
DX: R97.20 Elevated prostate specific antigen [PSA] (principal); N40.0 Benign prostatic hyperplasia without lower urinary tract symptoms; N20.0 Calculus of kidney; Z13.9 Encounter for screening, unspecified
CPT/HCPCS: 99214

== ENCOUNTER → 2024-02-08 08:33 | Outpatient (BNVA) | payer MEDICARE, OTHER, SELFPAY | PROVIDERS: PCP Internal Medicine; Visit Provider Urology | DX: R97.20 Elevated prostate specific antigen [PSA] (principal); N40.0 Benign prostatic hyperplasia without lower urinary tract symptoms; N52.9 Male erectile dysfunction, unspecified; N20.0 Calculus of kidney | CPT/HCPCS: 51798; 81003; 99212 ==

== ENCOUNTER 2024-08-02 07:24 | Outpatient (REF) | payer MEDICARE, OTHER, SELFPAY ==
--- NOTE | ~2024-08-02 | CT_ITS ---
EXAMINATION: CT CHEST WITHOUT CONTRAST CLINICAL INFORMATION: Other nonspecific abnormal finding of lung field. Follow-up emphysema with consolidation seen on 07/27/2022. COMPARISON: 08/15/2023, 07/27/2022, 06/17/2021. TECHNIQUE: Multidetector volumetric CT imaging of the chest was done. Axial MIP volume rendering provided. Sagittal and coronal reformatted images were obtained. This CT examination was performed using dose optimization techniques as appropriate, variously including the following: *Automated exposure control *Adjustment of mA and/or kV according to patient size (this includes techniques or standardized protocols for targeted exams where dose is matched to indication/reason for exam; i.e. extremities or head) *Use of iterative reconstruction technique FINDINGS: LUNGS: Moderate to severe centrilobular emphysema with upper lobe predominance. Apical pleural parenchymal scarring bilaterally. Stable stellate focus of scarring in the superior segment right lower lobe (series 5, image 61). There are no new or enlarging suspicious pulmonary nodules. Several small nodules along the right major fissure and minor fissure are consistent with intrapulmonary lymph nodes. These are stable and unchanged. No consolidations or abnormal groundglass opacities. No pleural or pericardial effusion. Mild thickening of the small airways noted, suggesting probable chronic bronchitis. Central airways demonstrate a saber-sheath trachea with some dependent secretions in the trachea. MEDIASTINUM: Normal thyroid. No abnormal lymphadenopathy or mass. The aorta is mildly uncoiled but normal in caliber. Great vessels branch normally. The main pulmonary artery is not enlarged. The heart size is normal. There is no pericardial effusion. Small type I hiatus hernia at the GE junction. Esophagus is nondilated. CORONARY ARTERY CALCIFICATION: Mild to moderate LAD calcifications. AXILLA\CHEST WALL: No abnormal lymphadenopathy or mass. There is bilateral moderate male gynecomastia. UPPER ABDOMEN: No abnormalities evident. Imaged upper abdominal contents aside from a small type I hiatus hernia. OSSEOUS STRUCTURES: No suspicious lytic or blastic bone lesions. Mild kyphoscoliosis of the thoracic spine with degenerative spondylosis. No compression deformities. There are old left-sided rib fractures. CT/CT chest wo IV con IMPRESSION: 1. Moderate to severe centrilobular emphysema with upper lobe predominance. Stable biapical scarring. 2. No new or enlarging suspicious pulmonary nodules. A stellate focus of scarring in the superior segment right lower lobe is stable, likely representing scarring. Continued observation on follow-up recommended. 3. There is diffuse mild thickening of the small airways suggesting chronic bronchitis. 4. The lungs are otherwise clear without focal consolidation or abnormal groundglass opacities. Electronically signed by: Sourav Hunt MD 08/02/2024 08:57 AM EDT RP
== END 2024-08-02 07:25 | disposition home or self-care (01) ==
LOC: HO.CT 07:24
PROVIDERS: Visit Provider Internal Medicine Pulmonary Disease
DX: R91.8 Other nonspecific abnormal finding of lung field (principal)
CPT/HCPCS: 71250

== ENCOUNTER → 2024-08-02 07:25 | Outpatient (BNV) | payer MEDICARE, OTHER, SELFPAY | PROVIDERS: Visit Provider Radiology Diagnostic Radiology | DX: J43.2 Centrilobular emphysema (principal) | CPT/HCPCS: 71250 ==

== ENCOUNTER 2024-08-30 13:19 | Outpatient (AMB) | payer OTHER, MEDICARE, SELFPAY ==
[2024-08-30 13:32] VITALS: BP 127/67; PULSE 55; O2SAT 95; BMI 19.0
--- NOTE | 2024-08-30 13:32 | MHC.OFFVIS ---
Vital Signs 08/30/24 13:32 Height 6 ft 1 in Weight 144 lb BMI 19.0 BP 127/67 Blood Pressure Location Rt brachial Position Sitting Pulse 55 Pulse Source Pulse Oximeter Pulse Oximetry (%) 95 Oxygen Delivery Method Room Air Intake Visit Reasons: COPD Allergies No Known Allergies (No Known Allergies*) Allergy (Verified 02/08/24 08:38) HPI HPI COPD: Details: 69-year-old gentleman, former 40+ pack-year smoker, quit 1999 followed for underlying severe COPD and pulmonary nodules.? Patient has been using Anoro and albuterol MDI with excellent control of his underlying dyspnea symptoms.? He denies recent COPD exacerbations.? His follow-up CT chest showed no worrisome nodules in August of 2024. [facility] Medical History Personal history of nicotine dependence History of pneumothorax History of hepatitis B Insomnia H/O urinary retention Enlarged prostate Elevated PSA Surgical History History of endoscopy History of colonoscopy History of bronchoscopy History of prostatectomy Social History Patient Tobacco Use Status: Former Tobacco user Years Smoked: 40+PYH, quit 1999 Review of Systems Const Denies daytime sleepiness, Denies excessive sweating, Denies fatigue, Denies fever(s), Denies lethargy, Denies malaise, Denies night sweats, Denies snoring and Denies weight loss Eyes Denies blurry vision and Denies itchy eyes ENT Denies nasal congestion, Denies post nasal drip, Denies sinus pain, Denies sinus pressure and Denies other ( Thrush) Card Denies chest pain, Denies pedal edema, Denies dyspnea, Denies orthopnea and Denies paroxysmal nocturnal dyspnea Resp Denies cough, Denies hemoptysis, Denies excessive phlegm production, Denies dyspnea, Denies snoring and Denies wheezing GI Denies abdominal pain and Denies heartburn Musc Denies myalgias, Denies arthralgias and Denies joint swelling Skin/Breast Denies rash Neuro Denies memory loss and Denies seizure-like activity Psych Denies abnormal sleep pattern, Denies anxiety and Denies memory loss Endo Denies excessive sweating, Denies fatigue and Denies heat intolerance Theo/Lymph Denies easy bruising Aller/Immun Denies itchy eyes, Denies seasonal rhinorrhea and Denies wheezing Physical Exam Vital Signs: Last Vital Signs Pulse 55 08/30/24 13:32 BP 127/67 08/30/24 13:32 Pulse Ox 95 08/30/24 13:32 Oxygen Delivery Method Room Air 08/30/24 13:32 BMI result Body Mass Index 19.0 Const General: no acute distress and alert Nutritional Appearance: not obese Orientation/consciousness: Other orientation findings ( oriented) HEENT Head: Yes atraumatic Eyes General: appearance normal, both eyes and all related structures Sclerae: sclerae normal EOM: EOMs intact bilaterally Neck Neck: Yes supple Lymphatic: no lymphadenopathy noted Resp Effort & Inspection: normal respiratory effort and no use of accessory muscles Auscultation: clear to auscultation bilaterally Cardio Rate: regular rate Rhythm: regular rhythm Heart sounds: no gallops, no murmurs and no rubs Skin General skin exam: other ( warm) Extrem General: No clubbing, No cyanosis and No edema Assessment & Plan Assessment & Plan (1) COPD (chronic obstructive pulmonary disease): Code(s): J44.9 - Chronic obstructive pulmonary disease, unspecified Category: Medical Plan: Well controlled on current regimen of Anoro and albuterol MDI. Continue current regimen. Coding Level of Care Code Est Pt Level 3 (33938) Diagnoses COPD (chronic obstructive pulmonary disease) J44.9
== END 2024-08-30 13:54 | disposition home or self-care (01) ==
LOC: HO.HPS 13:20
PROVIDERS: PCP Internal Medicine; Visit Provider Internal Medicine Pulmonary Disease
DX: J44.9 Chronic obstructive pulmonary disease, unspecified (principal)
CPT/HCPCS: 99213

== ENCOUNTER 2024-11-12 08:44 | Outpatient (AMB) | payer OTHER, MEDICARE, SELFPAY ==
[2024-11-12 08:52] VITALS: BP 132/68; PULSE 53; RESP 18; TEMP 36.3; O2SAT 93; BMI 18.2
--- NOTE | 2024-11-12 08:52 | A.OFFPC_ITS ---
Vital Signs 11/12/24 08:52 Height 6 ft 1 in Weight 138 lb 2 oz BMI 18.2 BP 132/68 Blood Pressure Location Lt brachial Position Sitting Respiration 18 Pulse 53 Pulse Source Pulse Oximeter Temp 97.3 F Temp Source Temporal Artery Scan Pulse Oximetry (%) 93 Oxygen Delivery Method Room Air Intake Visit Reasons: transfer from [facility] Medical Accountant Required: No Accompanied by: Self / Same As Patient Allergies No Known Allergies (No Known Allergies*) Allergy (Verified 11/12/24 08:56) Medication List - Last Reconciled 11/12/24 by Darshan Bermeo MD albuterol sulfate 90 mcg/actuation 2 puffs inhalation Q4-6H PRN 30 days finasteride 5 mg PO DAILY 90 days umeclidinium-vilanterol 62.5-25 mcg/actuation (Anoro Ellipta) 1 ea PO DAILY Tobacco use date assessed: 11/12/24 Fall risk assessment: No Falls in past year Last assessed Fall Risk: 11/12/24 Dental Screening Dental Screen Date: 11/12/24 Did you have a dental visit in the last 12 months?: No Did you have a dental problem in the last 6 months where you did not have access to dental care?: No Was dental information given to patient?: No HPI HPI Comments History of Present Illness Details The patient is a 69-year-old male presenting for a wellness visit and management of chronic conditions. He has a history of chronic Hepatitis B since 1995, with regular follow-ups by Dr. Fields. No recent procedures have been reported for this condition. The patient manages Chronic Obstructive Pulmonary Disease (COPD) with Dr. Kevin Kelley, using inhalers like Anoro, which he finds beneficial. Prostate health is monitored by Dr. Ronaldo Newberry, with a PSA test scheduled for February. No recent issues have been reported. He has lung nodules, with a CT scan planned for next year. A previous severe pneumonia episode required hospitalization and subsequent lung surgery. The patient reports bilateral leg pain and heaviness, particularly at night, which improves with walking. The pain is severe enough to wake him from sleep, with associated muscle contractions. Restless Leg Syndrome is suspected but not diagnosed. The patient has not tried treatments yet but is considering compression socks. Vaccinations are current, with recent influenza and COVID-19 vaccines administered. The pneumococcal vaccine was received three years ago. [facility] Medical History (Updated 11/12/24 @ 12:57 by Darshan Bermeo MD) Personal history of nicotine dependence History of pneumothorax History of hepatitis B Insomnia H/O urinary retention Enlarged prostate Elevated PSA Surgical History History of endoscopy History of colonoscopy History of bronchoscopy History of prostatectomy Social History Patient Tobacco Use Status: Former Tobacco user Years Smoked: 40+PYH, quit 1999 Questionnaire PHQ-9 Over the last 2 weeks, how often have you been bothered by any of the following problems? 1. Little interest or pleasure in doing things: not at all 2. Feeling down, depressed, or hopeless: not at all 3. Trouble falling or staying asleep, or sleeping too much: not at all 4. Feeling tired or having little energy: not at all 5. Poor appetite or overeating: not at all 6. Feeling bad about yourself - or that you are a failure or have let yourself or your family down: not at all 7. Trouble concentrating on things, such as reading the newspaper or watching television: not at all 8. Moving or speaking so slowly that other people could have noticed. Or the opposite - being so fidgety or restless that you have been moving around a lot more than usual: not at all 9. Thoughts that you would be better off or of hurting yourself in some way: not at all Total score: 0 Source: Developed by Drs. Lamin Cifuentes, Elizabeth Arroyo, Greg Stratton and colleagues, with an educational luisa from [employer]. Thrive Questionnaire Date Thrive assessed: 11/12/24 I am a: Patient What is your living situation today?: I have a steady place to live Within the past 12 months, did the food you bought not last and you didn't have the money to get more?: Sometimes True Within the past 12 months, did you worry whether your food would run out before you got money to buy more?: Sometimes True Do you have trouble paying for medicines?: Yes Do you have trouble getting transportation to medical appointments?: No Do you have trouble paying your heating and electricity bill?: No Do you have trouble taking care of your child, family member or friend?: No Do you have trouble with day-to-day activities such as bathing, preparing meals, shopping, managing finances, etc.?: No Are you currently unemployed and looking for a job?: No Are you interested in more education?: No Please select the resources that you would like help with: None Currently or been in a relationship where the following occur: No concerns reported THRIVE Score: 2 AUDIT C Alcohol Use Questionnaire (AUDIT-C) 1. How often do you have a drink containing alcohol?: Never 3. How often do you have six or more drinks on one occasion?: Never Total Score: 0 GAL-7 AMB Questionnaire GAL-7 Date GAL - 7 assessed: 11/12/24 Feeling nervous, anxious, or on edge: 0 = Not at all Not being able to stop or control worryin = Not at all Worrying too much about different things: 0 = Not at all Trouble relaxin = Not at all Being so restless that it is hard to sit still: 0 = Not at all Becoming easily annoyed or irritable: 0 = Not at all Feeling afraid as if something awful might happen: 0 = Not at all Total GAL-7 score (0-4 normal; 5-9 mild; 10-14 moderate; 15-21 severe): 0 Source: Developed by Drs. Lamin Cifuentes, Elizabeth Arroyo, Greg Stratton and colleagues, with an educational luisa from [employer]. Review of Systems Const Details: - Neurological: Reports bilateral leg pain and heaviness at night, improves with walking. Denies daytime pain. - Respiratory: Denies dyspnea during the day, uses inhalers regularly for COPD management. - Musculoskeletal: Reports muscle contractions in legs at night, severe enough to wake him from sleep. Physical exam (Primary Care) Vital Signs: Last Vital Signs Temp 97.3 F 11/12/24 08:52 Pulse 53 11/12/24 08:52 Resp 18 11/12/24 08:52 BP 132/68 11/12/24 08:52 Pulse Ox 93 11/12/24 08:52 Oxygen Delivery Method Room Air 11/12/24 08:52 BMI result Body Mass Index 18.2 Tobacco/Smoking Status: Tobacco use Status Tobacco use date assessed 11/12/24 11/12/24 08:59 Patient Tobacco Use Status Former Tobacco user 11/12/24 08:59 PHQ-9: PHQ-9 Score PHQ-9: Total score 0 11/12/24 12:57 Thrive Assessment: Date of Thrive Assessment Date Thrive assessed 11/12/24 11/12/24 08:59 Currently or been in a relationship where the following occur: No concerns reported Const Other: GENERAL APPEARANCE NAD, activity normal for age, well developed/ well nourished, no cyanosis, pallor, or diaphoresis. EYES lids/conjunctiva normal. EARS/NOSE/THROAT Mucous membranes moist, nares normal, lips/teeth normal uvula midline without oral pharyngeal erythema, exudate or swelling TMs normal bilaterally. No lymphangitis/lymphedema. HEAD/NECK normocephalic atraumatic, no facial trauma, neck is supple. RESPIRATORY respiratory effort normal, speaks in full sentences, no tripod position, no accessory muscle use. Lungs clear to auscultation without rhonchi, wheezes, rales CARDIAC Regular rate and rhythm, no edema. ABDOMINAL Soft, ND/NT. No evidence of fluid wave. No pulsatile masses on exam, rebound tenderness, Bullard sign or pain over Mcburney's point. Musculoskeletal: Tightness noted in lower extremities, no tenderness or swelling observed SKIN Warm, pink and dry. No rashes, dermatoses, petechiae or lesions. Neurological: Sensation intact throughout lower extremities, no focal deficits noted PSYCH Normal mood and affect. Judgement/competence is appropriate Coding Level of Care Code Est Pt Level 3 (14614) Diagnoses History of hepatitis B Z86.19 Health care maintenance Z00.00 Chronic obstructive pulmonary disease, unspecified COPD type J44.9 COPD type: unspecified COPD Elevated PSA R97.20 Leg heaviness R29.898 Assessment & Plan Assessment & Plan (1) History of hepatitis B: Code(s): Z86.19 - Personal history of other infectious and parasitic diseases Category: Medical Plan: The patient will continue regular follow-ups with Dr. Fields for chronic Hepatitis B management. No new interventions are planned at this time. (2) Health care maintenance: Code(s): Z00.00 - Encounter for general adult medical examination without abnormal findings Category: Medical Plan: CBFC, CMP, PSA. (3) COPD (chronic obstructive pulmonary disease): Code(s): J44.9 - Chronic obstructive pulmonary disease, unspecified Category: Medical Qualifiers: COPD type: unspecified COPD Qualified Code(s): J44.9 - Chronic obstructive pulmonary disease, unspecified Plan: Management of COPD will continue with the use of inhalers, specifically Anoro, under the guidance of Dr. Kevin Kelley. (4) Elevated PSA: Code(s): R97.20 - Elevated prostate specific antigen [PSA] Category: Medical Plan: A PSA test is scheduled for February to monitor prostate health, with follow-up care by Dr. Ronaldo Newberry. (5) Leg heaviness: Comment: Suspected electrolytes imbalances vs restless leg syndrome. Code(s): R29.898 - Other symptoms and signs involving the musculoskeletal system Category: Medical Plan: The patient is advised to try ibuprofen for leg pain and heaviness, with further evaluation through lab tests to check for electrolyte imbalances and iron deficinecy. Ibuprofen OTC for now. Plan Health maintenance: - Vaccinations: Influenza and COVID-19 vaccines administered recently, pneumococcal vaccine received three years ago - Prostate health: PSA test scheduled for February - Lung health: CT scan for lung nodules planned for next year Orders: Orders Comprehensive Met. Panel Today Z00.00 - Encounter for general adult medical examination without abnormal findings, Z86.19 - Personal history of other infectious and parasitic diseases Complete Blood Count no Diff Today Z00.00 - Encounter for general adult medical examination without abnormal findings US abdominal aortic aneurysm Today Z00.00 - Encounter for general adult medical examination without abnormal findings IRON PROFILE Today R29.898 - Other symptoms and signs involving the musculoskeletal system Lipid Panel Today Z00.00 - Encounter for general adult medical examination without abnormal findings Hemoglobin A1c Today Z00.00 - Encounter for general adult medical examination without abnormal findings
== END 2024-11-12 10:54 | disposition home or self-care (01) ==
LOC: HO.HMCH 08:45
PROVIDERS: PCP Internal Medicine; Visit Provider Internal Medicine
DX: Z86.19 Personal history of other infectious and parasitic diseases (principal); Z00.00 Encounter for general adult medical examination without abnormal findings; J44.9 Chronic obstructive pulmonary disease, unspecified; R97.20 Elevated prostate specific antigen [PSA]; R29.898 Other symptoms and signs involving the musculoskeletal system

== ENCOUNTER 2025-01-28 07:03 | Outpatient (REF) | payer OTHER, MEDICARE, SELFPAY ==
[2025-01-28 08:55] LABS: Prostate Specific Antigen 5.28 ng/mL (<0.05-4.0)
== END 2025-01-28 07:04 | disposition home or self-care (01) ==
LOC: HO.LAB 07:03
PROVIDERS: PCP Internal Medicine; Visit Provider Urology
DX: R97.20 Elevated prostate specific antigen [PSA] (principal); Z12.5 Encounter for screening for malignant neoplasm of prostate
CPT/HCPCS: 36415; 84153

== ENCOUNTER 2025-02-05 14:21 | Outpatient (AMB) | payer OTHER, MEDICARE, SELFPAY ==
--- NOTE | 2025-02-05 14:21 | MHC.OFFVIS ---
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 He is a patient of Dr. Bran. He is seen for the following urologic conditions - elevated PSA - lower urinary tract symptoms - erectile dysfunction Telemedicine Evaluation 15 min Consultation eelusion Marybeth Video Highly variable PSA Discussed results Continues with finasteride every other day Prior PSA jump to 9.6 18% Has moved around with snow shoveling Repeat lab 05/28 3.7 Prior ALEXIA 2+ 12 month follow-up Lower urinary tract symptoms Prior treatment with laser prostatectomy Imaging - 02/24 renal ultrasound normal no evidence of kidney stone - prior hematuria thought secondary to stone Erectile dysfunction More a question of what to look out for Elevated PSA Historic PSA between 5 and 7. Prior prostate biopsy negative PSA 03/26 8.0, 11/25 4.4, 03/28 7.6, 09/25 3.5 F+, 03/29 3.9 18% +F, 09/26 4.1, 03/30 9.7 18%, 01/28 3.9, 01/29 5.3 PFSH Medical History (Updated 11/26/24 @ 14:59 by Darshan Bemreo MD) Personal history of nicotine dependence History of pneumothorax History of hepatitis B Insomnia H/O urinary retention Enlarged prostate Elevated PSA Surgical History History of endoscopy History of colonoscopy History of bronchoscopy History of prostatectomy Social History Patient Tobacco Use Status: Former Tobacco user Years Smoked: 40+PYH, quit 1999 Review of Systems Const All systems reviewed & are unremarkable except as noted in HPI and below Reports no additional complaints Resp Reports no additional complaints GI Reports no additional complaints Reports as per HPI Musc Reports no additional complaints Physical Exam Telemedicine evaluation Appropriate responses Regular breathing rate and rhythm HEENT Head: Yes normal to inspection Ears: hearing grossly normal bilaterally Eyes General: appearance normal, both eyes and all related structures Neck Neck: Yes normal visual inspection Chest Chest palpation & inspection: normal inspection of the chest Resp Effort & Inspection: normal respiratory effort and able to speak in complete sentences Telehealth Telehealth Telehealth Platform: eelusion Location of provider rendering services: practice address Location of patient: address on file Patient Identification confirmed using: Name, : Yes Telehealth method: video Patient verbally consented to treatment: Yes Patient verbally consented to billing insurance company: Yes Patient informed of any privacy concerns related to visit: Yes Minutes spent on Phone/Video with Pt.: 15 Assessment & Plan Assessment & Plan (1) Elevated PSA: Code(s): R97.20 - Elevated prostate specific antigen [PSA] Category: Medical (2) Nephrolithiasis: Code(s): N20.0 - Calculus of kidney Category: Medical Plan Twelve month follow-up Orders: Orders PSA,Total (Free>4and<10) 12 Months N40.0 - Benign prostatic hyperplasia without lower urinary tract symptoms Patient Instructions: This note is constructed using voice recognition software. While every effort has been made to ensure accuracy rn house supervisor errors may have been included. Imaging studies, laboratory and physical exam results were discussed and reviewed in detail. No major barriers to patient understanding were identified. An opportunity to ask questions regarding the treatment plan was provided. All questions were answered. The patient expressed understanding and agreement with the above treatment plan. The patient is aware they should contact our office by phone for worsening of their current condition or the appearance of new urologic symptoms. Compliance is encouraged with any medications and followup testing that is ordered. It is a privilege to participate in the urologic care of your patient. If you have any questions or concerns regarding treatment for the above conditions, or other urologic issues, please do not hesitate to contact me. The office telephone contact is [phone]. Sincerely, Dr Ronaldo Newberry MD, [facility] - Urology Compassionate Specialist Care for the Genitourinary System Coding Level of Care Code Tele Est Pt Level 3 (02277) Complex visit Add On G2211 Diagnoses Elevated PSA R97.20 Nephrolithiasis N20.0
== END 2025-02-05 15:25 | disposition home or self-care (01) ==
LOC: HO.HUSH 14:21
PROVIDERS: PCP Internal Medicine; Visit Provider Urology
DX: R97.20 Elevated prostate specific antigen [PSA] (principal); N20.0 Calculus of kidney
CPT/HCPCS: 99213

== ENCOUNTER 2025-02-08 07:47 | Outpatient (REF) | payer OTHER, MEDICARE, SELFPAY ==
--- NOTE | ~2025-02-08 | US_ITS ---
CLINICAL HISTORY: Z00.00 - Encounter for general adult medical examination without abnorma... US abdominal aorta screening with duplex and color Doppler Comparison: None Findings: Aorta diameter proximal: 3.1 x 2.9 cm. Aorta diameter mid: Obscured by bowel gas Aorta diameter distal: 2.3 x 2.2 cm.Peak systolic velocity 67.2 cm/sec Right common iliac artery maximum diameter: 1.2 x 0.9 cm. Left common iliac artery maximum diameter: 1.3 x 1.0 cm. Normal color Doppler. Impression: 1. Borderline ectasia of the proximal abdominal aorta. Bowel gas obscured portions of the exam. This document has been electronically signed by: Hugo Oh MD on 02/08/2025 09:33:41
== END 2025-02-08 07:48 | disposition home or self-care (01) ==
LOC: HO.US 07:47
PROVIDERS: PCP Internal Medicine; Visit Provider Internal Medicine
DX: Z00.00 Encounter for general adult medical examination without abnormal findings (principal); F17.200 Nicotine dependence, unspecified, uncomplicated
CPT/HCPCS: 76706

== ENCOUNTER → 2025-02-08 07:49 | Outpatient (BNV) | payer OTHER, MEDICARE, SELFPAY | PROVIDERS: PCP Internal Medicine; Visit Provider Radiology Diagnostic Radiology | DX: Z00.00 Encounter for general adult medical examination without abnormal findings (principal) | CPT/HCPCS: 76706 ==